=== PATIENT | male | born 1980 | race Caucasian/White ===

== ENCOUNTER 2016-07-10 09:55 | Emergency (ER) | payer BC ==
--- NOTE | 2016-07-10 10:44 | UCPHY ---
H & P Patient Type: Established Chief Complaint Nursing Narrative: INJURY TO R 3RD AND 4TH TOES, FATHER ALSO REPORTS INCREASED PERIODS OF LETHARY AND SLOW SPEECH Time Seen by Provider: 07/10/16 10:31 HPI/ROS: Chief Complaint: Slow speech, difficult to arouse, right toe pain HPI: A 36-year-old male with a history of type 2 diabetes on glipizide, alcoholism is being brought in by his mom for recent. Is of difficult to arouse , slurred speech and slow take answer. Patient is a history of alcoholism but states he has not been drinking alcohol. States that he last handle alcohol 2 nights ago with some white woman clicking but has not been drinking any. He states he is compliant with medications. States he did stub his right middle toe 2 days ago is having pain and discoloration there. No nausea or vomiting. Has not fallen down or hit his head. No headache. No chest pain shortness of breath. No abdominal pain. No nausea vomiting or diarrhea. No increased thirst or urination. ROS: 10 point Review of Systems is negative except as noted in the HPI. PMH: Diabetes, alcoholism, psoriasis Social History: Denies smoking, denies alcohol, denies Family History: non-contributory Physical Exam: Gen: Awake, Alert, slurred speech, delays and answering, appears intoxicated HEENT: Nose: no rhinorrhea Eyes: PERRLA, EOMI Mouth: Dry mucosa Neck: Supple, no JVD Chest: nontender, lungs clear to auscultation Heart: S1, S2 normal, no murmur Abd: Soft, non-tender, no guarding Back: no CVA tenderness, no midline tenderness Ext: 2+ nonpitting edema, ecchymoses to the proximal phalanx of his right middle toe with tenderness Skin: no rash Neuro: CN II-XII intact, Sensation grossly intact, Strength 5/5 in bilateral upper and lower extremities - Personal History Current Tetanus/Diphtheria Vaccine: Unsure - Medical/Surgical History Hx Asthma: No Hx Chronic Respiratory Disease: No Hx Diabetes: Yes Hx Cardiac Disease: No Hx Renal Disease: No Hx Cirrhosis: No Hx Alcoholism: Yes Hx HIV/AIDS: No Other PMH: HTN, acute pancreatitis, depression, psoriasis, possible diabetes, knee surgery, alcoholism - Family History Significant Family History: No pertinent family hx - Social History Smoking Status: Never smoked Constitutional: Initial Vital Signs Temperature (C) 36.4 C 07/10/16 10:05 Heart Rate 88 07/10/16 10:05 Respiratory Rate 16 07/10/16 10:05 Blood Pressure 151/96 H 07/10/16 10:05 O2 Sat (%) 94 07/10/16 10:05 O2 Delivery Mode Room Air Allergies/Adverse Reactions: amoxicillin trihydrate [From Augmentin] Allergy (Verified 02/08/16 19:35) potassium clavulanate [From Augmentin] Allergy (Verified 02/08/16 19:35) Home Medications: Medication Instructions Recorded Lisinopril 02/08/16 oxyCODONE/APAP 5/325 [Percocet 1 - 2 tab PO Q4H PRN #14 tab 02/08/16 5/325 (*)] oxyCODONE/APAP 5/325 [Percocet 1 - 2 tab PO Q4-6PRN PRN #6 tab 02/11/16 5/325 (*)] Medical Decision Making ED Course/Re-evaluation: Patient's blood alcohol is noted to be significantly elevated at 466. Call his symptoms are clearly secondary to his intoxication. I have had a long discussion with him and his parents. His parents are on willing to take him home at this time. He does not have any other so read available. I have called left [facility] police department to put him on and are cold and taken to the [facility]. I have written him for a Librium to go pack. Patient is medically cleared for the [facility]. - Data Points Laboratory Results: Laboratory Results 07/10/16 10:27 07/10/16 10:27 07/10/16 07/10/16 10:27 10:27 WBC 8.04 10^3/uL 10^3/uL (3.80-9.50) RBC 4.82 10^6/uL 10^6/uL (4.40-6.38) Hgb 15.9 g/dL g/dL (13.7-17.5) Hct 46.6 % % (40.0-51.0) MCV 96.7 fL fL (81.5-99.8) MCH 33.0 pg pg (27.9-34.1) MCHC 34.1 g/dL g/dL (32.4-36.7) RDW 12.9 % % (11.5-15.2) Plt Count 185 10^3/uL 10^3/uL (150-400) MPV 10.5 fL fL (8.7-11.7) Neut % (Auto) 61.9 % % (39.3-74.2) Lymph % (Auto) 32.0 % % (15.0-45.0) [place] % (Auto) 2.9 % L % (4.5-13.0) Eos % (Auto) 1.9 % % (0.6-7.6) Baso % (Auto) 0.9 % % (0.3-1.7) Nucleat RBC Rel Count 0.0 % % (0.0-0.2) Absolute Neuts (auto) 4.99 10^3/uL 10^3/uL (1.70-6.50) Absolute Lymphs (auto) 2.57 10^3/uL 10^3/uL (1.00-3.00) Absolute Monos (auto) 0.23 10^3/uL L 10^3/uL (0.30-0.80) Absolute Eos (auto) 0.15 10^3/uL 10^3/uL (0.03-0.40) Absolute Basos (auto) 0.07 10^3/uL 10^3/uL (0.02-0.10) Absolute Nucleated RBC 0.00 10^3/uL 10^3/uL (0-0.01) Immature Gran % 0.4 % % (0.0-1.1) Immature Gran # 0.03 10^3/uL 10^3/uL (0.00-0.10) Sodium 155 mEq/L H mEq/L (134-144) Potassium 4.2 mEq/L mEq/L (3.5-5.2) Chloride 106 mEq/L mEq/L (97-110) Carbon Dioxide 24 mEq/l mEq/l (22-31) Anion Gap 25 mEq/L H mEq/L (8-16) BUN 6 mg/dL L mg/dL (7-23) Creatinine 0.6 mg/dL L mg/dL (0.7-1.3) Estimated GFR > 60 Glucose 138 mg/dL H mg/dL (70-100) Calcium 9.3 mg/dL mg/dL (8.5-10.4) Total Bilirubin 1.1 mg/dL mg/dL (0.1-1.4) Conjugated Bilirubin 0.7 mg/dL H mg/dL (0.0-0.5) Unconjugated Bilirubin 0.4 mg/dL mg/dL (0.0-1.1) AST 102 IU/L H IU/L (17-59) ALT 58 IU/L IU/L (21-72) Alkaline Phosphatase 166 IU/L H IU/L (38-126) Total Protein 9.1 g/dL H g/dL (6.3-8.2) Albumin 4.7 g/dL g/dL (3.5-5.0) Lipase 198.0 IU/L IU/L (23-300) Ethyl Alcohol 466 mg/dL H* mg/dL (0-10) Medications Given: Discontinued Medications Chlordiazepoxide (Librium 25 Mg Prepack#6) 1 btl TAKEHOME EDNOW ONE Stop: 07/10/16 13:18 Last Admin: 07/10/16 13:22 Dose: Not Given Departure - Departure Disposition: Home, Routine, Self-Care Clinical Impression: Alcohol intoxication Condition: Good Instructions: Alcohol Intoxication (ED) Additional Instructions: Please seek help to decrease your alcohol consumption. Medically cleared for the [facility]. Referrals: NONE *PRIMARY CARE P,. [Primary Care Provider] - As per Instructions - PQRS PQRS Measurement: NA
[2016-07-10 10:45] LABS: % IMMATURE GRANULYOCYTES 0.4 % (0.0-1.1); ABSOLUTE IMMATURE GRANULOCYTES 0.03 10^3/uL (0.00-0.10); ADD DIFF? NO; ADD MORPH? NO; ADD SCAN? NO; ATYPICAL LYMPHOCYTE FLAG 0 (0-99); FRAGMENT RBC FLAG 0 (0-99); HEMATOCRIT 46.6 % (40.0-51.0); HEMOGLOBIN 15.9 g/dL (13.7-17.5); LEFT SHIFT FLG 0 (0-99); LIPEMIA HEMOLYSIS FLAG 90 (0-99); MEAN CELL HEMOGLOBIN CONCENTR. 34.1 g/dL (32.4-36.7); MEAN CELL VOLUME 96.7 fL (81.5-99.8); MEAN PLATELET VOLUME 10.5 fL (8.7-11.7); PLATELET CLUMPS FLAG 0 (0-99); PLATELET COUNT 185 10^3/uL (150-400); RED BLOOD CELL COUNT 4.82 10^6/uL (4.40-6.38); RED CELL DISTRIBUTION WIDTH 12.9 % (11.5-15.2)
[2016-07-10 10:58] LABS: ALANINE AMINOTRANSFERASE 58 IU/L (21-72); ALBUMIN 4.7 g/dL (3.5-5.0); ALKALINE PHOSPHATASE 166 IU/L (38-126); ANION GAP 25 mEq/L (8-16); ASPARTATE AMINOTRANSFERASE 102 IU/L (17-59); BILIRUBIN,TOTAL 1.1 mg/dL (0.1-1.4); BILIRUBIN-CONJUGATED 0.7 mg/dL (0.0-0.5); BILIRUBIN-UNCONJUGATED 0.4 mg/dL (0.0-1.1); CALCIUM 9.3 mg/dL (8.5-10.4); CARBON DIOXIDE 24 mEq/l (22-31); CHLORIDE 106 mEq/L (97-110); CREATININE 0.6 mg/dL (0.7-1.3); GLOMERULAR FILTRATION RATE > 60; GLUCOSE 138 mg/dL (70-100); POTASSIUM 4.2 mEq/L (3.5-5.2); SODIUM 155 mEq/L (134-144); TOTAL PROTEIN 9.1 g/dL (6.3-8.2)
[2016-07-10 12:50] LABS: ETHANOL SERUM 466 mg/dL (0-10)
[2016-07-10] MEDS ORDERED: CHLORDIAZEPOXIDE 25MG PREPK#6 BTL TAKEHOME ONE (13:17)
[2016-07-10 13:20] VITALS: TEMP 98.6
[2016-07-10 13:35] VITALS: BP 147/67; PULSE 87; RESP 18; O2SAT 95
== END 2016-07-10 13:35 | disposition home or self-care (01) ==
LOC: CED 09:55
DX: F10.129 Alcohol abuse with intoxication, unspecified (principal); M79.674 Pain in right toe(s); E11.9 Type 2 diabetes mellitus without complications
CPT/HCPCS: 80048-PO; 80076-PO; 83690-PO; 85025-PO; 99214-PO; G0463-PO; G0480

== ENCOUNTER 2016-12-27 19:24 | Emergency (ER) | payer BC, OTHER ==
[2016-12-27 19:35] VITALS: BP 156/105; PULSE 72; RESP 16; TEMP 98.6; O2SAT 97
--- NOTE | 2016-12-27 19:35 | EDPHY ---
H & P Time Seen by Provider: 12/27/16 19:27 HPI/ROS: HPI Left middle finger injury. 36-year-old male by private vehicle with his mother. This patient reports that he jammed the tip of his left middle finger in a door yesterday evening. He comes into the emergency department complaining of pain to the distal aspect of the left middle finger and discoloration to it. No other complaint. No other injury. He is right-hand dominant ROS: Constitutional: No fever, no chills. No weakness. Musculoskeletal: As above. Skin: No rashes. No lacerations or abrasions. Neurological: No focal weakness or altered sensation. Past medical history: Psoriasis, type 2 diabetes, alcohol abuse. Social history: Here with mother. Nonsmoker. As above. Physical Exam: General Appearance: Alert, no distress. This patient is responding to questions appropriately and in full sentences. This patient appears well- hydrated and well-nourished. Eyes: Pupils equal and round no pallor or injection. No lid edema, erythema or injection. Left hand/middle finger examination: Significant for some mild swelling to the distal tip of the finger he has some faint ecchymosis proximal aspect of the nail bed. Normal capillary refill. There is not a significant subungual hematoma. The distal extensor function of the digit is intact. The left middle finger and hand are neurovascularly intact. Neurological: Motor sensory function is grossly intact. Cranial nerves are normal. Gait is normal. Skin: Warm and dry, no rashes. No lacerations or abrasions. Extremities are symmetrical. All joints range without pain or impingement. Psychiatric: No agitation. No depression. Database: EKG: Imaging: Left middle finger x-ray series: Oblique fracture of dorsal base of distal phalanx. Interpreted by me. Procedures: Emergency department course: X-rays obtained. Results of x-rays discussed with the patient. Diagnosis of fracture of distal phalanx discussed. He was given 600 mg of ibuprofen in the emergency department. An aluminum finger splint was placed. Plan will be to have him follow up with orthopedic hand specialist Dr. Clau Camargo in 2-3 days for re-evaluation and further management. He is in agreement with this plan. Return to emergency department precautions were discussed with him. All of his questions were answered. He was discharged in good condition with his mother Differential Diagnosis: The differential diagnosis on this patient includes but is not limited to left middle finger contusion, fracture, subluxation, dislocation. This represents a partial list of diagnoses considered. These considerations are based on history , physical exam, past history, reassessment and diagnostic testing. Smoking Status: Never smoked Constitutional: Initial Vital Signs Temperature (C) 37 C 12/27/16 19:32 Heart Rate 72 12/27/16 19:32 Respiratory Rate 16 12/27/16 19:32 Blood Pressure 156/105 H 12/27/16 19:32 O2 Sat (%) 97 12/27/16 19:32 O2 Delivery Mode Room Air Allergies/Adverse Reactions: amoxicillin trihydrate [From Augmentin] Allergy (Verified 02/08/16 19:35) potassium clavulanate [From Augmentin] Allergy (Verified 02/08/16 19:35) Home Medications: Medication Instructions Recorded Amlodipine Besylate 12/27/16 Medical Decision Making - Diagnostics Imaging Results: Imaging Impressions Finger X-Ray 12/27/16 19:31 Impression: Oblique left third distal phalanx nondisplaced acute fracture. Departure - Departure Disposition: Home, Routine, Self-Care Clinical Impression: Injury of left middle finger, Fracture of distal phalanx of finger Condition: Good Instructions: Finger Fracture (ED) Additional Instructions: Read and follow provided instructions. Follow-up with orthopedic hand specialist, Dr. Clau Camargo, in the next 2-3 days for re-evaluation. Call her office tomorrow morning at 9:00 a.m. for appointment. Explained this is for an emergency department follow-up. Ibuprofen dosin mg every 6 hours with meals for the next 3 days only. Return to the emergency department for uncontrolled pain, discoloration or other serious concerns. Referrals: Clau Camargo MD [Medical Doctor] - As per Instructions
[2016-12-27] MEDS ORDERED: IBUPROFEN 600 MG TAB PO ONE (20:01)
== END 2016-12-27 20:13 | disposition home or self-care (01) ==
LOC: CED 19:24
DX: S62.663A Nondisplaced fracture of distal phalanx of left middle finger, initial encounter for closed fracture (principal); E11.9 Type 2 diabetes mellitus without complications; W23.0XXA Caught, crushed, jammed, or pinched between moving objects, initial encounter
CPT/HCPCS: 73140-PO; L3925